=== PATIENT | female | born 1985 | race Caucasian/White ===

== ENCOUNTER 2024-11-11 10:59 | Outpatient (AMB) | payer BC, SELFPAY ==
[2024-11-11 11:42] VITALS: BP 137/79; PULSE 98; RESP 18; TEMP 36.8; O2SAT 99
--- NOTE | 2024-11-11 11:42 | GYNCLNT_ITS ---
Vital Signs 11/11/24 11:42 Weight 60.838 kg Weight Measurement Method Standing Scale BP 137/79 H Blood Pressure Source Automatic Cuff Blood Pressure Location Left Upper Arm Position Sitting Respiration 18 Pulse 98 Pulse Source Monitor Temp 98.2 F Temp Source Oral Pulse Oximetry (%) 99 Oxygen Delivery Method Room Air Allergies/Home Meds Allergies & Medications Allergies No Known Allergies Allergy (Verified 11/11/24 11:42) Medication Reconciliation No Known Home Medications 11/11/24 [History Confirmed 11/11/24] Intake Visit Data Collection New Patient or Established: New Patient (never been to [facility]) Reason for Visit:: Patient cannot feel IUD strings. She would like to check her IUD and establish care. She is not due for an annual for about 3 months. 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 1. Little interest or pleasure in doing things: not at all 2. Feeling down, depressed, or hopeless: not at all Total score: 0 PHQ-9 3. Trouble falling or staying asleep, or sleeping too much: Not at all 4. Feeling tired or having little energy: Not at all 5. Poor appetite or overeating: Not at all 6. Feeling bad about yourself - or that you are a failure or have let yourself or your family down: Not at all 7. Trouble concentrating on things, such as reading the newspaper or watching television: Not at all 8. Moving or speaking so slowly that other people could have noticed? - Or the opposite - being so fidgety or restless that you have been moving around a lot more than usual: not at all 9. Thoughts that you would be better off or of hurting yourself in some way: Not at all Total score: 0 If you checked off any problems, how difficult have these problems made it for you to do your work, take care of things at home, or get along with other people?: not difficult at all Source: Developed by Drs. Parag Swanson, Krystyna Magdaleno, Cruz Horan and colleagues, with an educational dorota from [employer]. Depression screen completed yes Social History Living Situation History Marital Status: Lives With: Family Housing: House Housing Other:: 5 y/o son and 3 y/o daalexter. 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 She has a MPH Tobacco History Smoking Status: Never smoker Second Hand Smoke Exposure: No Alcohol History Alcohol Intake: Never Domestic Abuse History Do You Feel Safe at Home: Yes Past Medical History Past Medical History Have you ever been diagnosed with any of the following: Reproductive Problems Breast Cancer: No Endometriosis: No Fibroids: No Genital Herpes: No Gonorrhea: No Pelvic Inflammatory Disease: No Polycystic Ovarian Syndrome: No Previous Pregnancies: Yes (Vaginal delivery x 2 in the past) Endocrine Problems Diabetes Mellitus Type 2: No Hyperthyroidism: No Hypothyroidism: No Blood Problems Anemia: No Psychologic Problems Anxiety: Yes Other Problems Hospitalization: Yes (For childbirth x 2) Surgical History Appendectomy: No Cholecystectomy: No History of Present Illness HPI Narrative The patient is a 39-year-old -0-0-2 who used to be my patient in [place]. She presents to [facility]. She has a 5-year-old son and 3-year-old daughter. After her 3-year-old daughter was born I placed an IUD in the office. Patient is concerned because she cannot feel her strings. She is quite happy with her Mirena IUD. She does not have cycles on it. The patient's is currently flying in [place]. He is a [place] [employer] pilot. 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 Patient has no hot flashes night sweats or other complaints. She was pleasantly surprised to get an appointment with me soon but then realized that she is not due for a Pap smear for another 3 months. She is quite concerned about her IUD and wants to ensure it is in place because she does not desire another . Review of Systems Review of Systems Narrative Review of Systems: No dysuria. No abnormal bleeding. No hot flashes. No night sweats. No abnormal vaginal discharge or odor. No new sexual contacts. No dysuria. No breast pain or tenderness. Exam General General Appearance: alert, in no apparent distress, comfortable, cooperative, healthy appearing and well groomed External exam: Present normal external exam Speculum exam: Present normal speculum exam and other (No IUD string seen today) Bimanual exam: Present normal bimanual exam Assessment & Plan Diagnosis / Problem List (1) Encounter for Routine Gynecological Examination: Qualifiers: Gynecological examination findings: abnormal findings PRESENT Qualified Code(s): Z01.411 - Encounter for gynecological examination (general) (routine) with abnormal findings Assessment and Plan: Annual deferred for 3 months. IUD strings not visible. Check pelvic ultrasound. (2) IUD strings lost: Status: Acute Qualifiers: Encounter type: initial encounter Qualified Code(s): T83.32XA - Displacement of intrauterine contraceptive device, initial encounter Assessment and Plan: Transvaginal ultrasound ordered. Will have phone consult to discuss placement of IUD. Will schedule annual for 3 months from now. Office Procedures OB Clinic LOC & Office Proc's Nursing/Assessment Patient Status: Initial/New Patient OB Clinic Nursing Assessment: BP Monitoring, Medication Reconciliation, Update PMH in EMR and Vital Signs OB Clinic Coordination of Care: Consent,records obtained, informed consent, Education Simp Pt/Fam and Staff clarify orders Miscellaneous Interventions: Pelvic/Pap Smear Set up New Patient Charge New Patient Point Assignment: [id number] New Patient Point Charge: SQL REPORT ANALYST Level 3 ([id number])
== END 2024-11-11 11:57 | disposition home or self-care (01) ==
LOC: HODSOBC 10:59
PROVIDERS: Supervising Provider Obstetrics & Gynecology; Visit Provider Obstetrics & Gynecology
DX: T83.32XA Displacement of intrauterine contraceptive device, initial encounter (principal); Y84.8 Other medical procedures as the cause of abnormal reaction of the patient, or of later complication, without mention of misadventure at the time of the procedure
CPT/HCPCS: 99203; G0463